=== PATIENT | female | born 1975 | race Caucasian/White ===

== ENCOUNTER → 2016-11-12 | Outpatient (CLI) | payer MEDICAID ==
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
== END | disposition home or self-care (01) ==
LOC: ADTC.GI 08:27 → EDSEX 08:27 → ADTC.GI 10:00
DX: F15.20 Other stimulant dependence, uncomplicated (principal)